=== PATIENT | female | born 1980 | race Caucasian/White ===

== ENCOUNTER → 2019-01-04 10:12 | Outpatient (CLI) | payer OTHER, SELFPAY ==
[2019-01-04 13:00] LABS: Free T3, Triiodothyronine Free 3.88 pg/mL (2.77-5.27); Free T4, Direct Thyroxine 0.84 ng/dL (0.78-2.19)
[2019-01-04 13:14] LABS: Thyroid Stimulating Hormone 1.38 uIU/mL (0.47-4.68)
[2019-01-06 15:16] LABS: Thyroid Peroxidase Antibodies 71 IU/mL (< 9)
== END ==
PROVIDERS: PCP Family Medicine; Visit Provider Family Medicine
DX: E05.00 Thyrotoxicosis with diffuse goiter without thyrotoxic crisis or storm (principal)
CPT/HCPCS: 36415; 84439; 84443; 84481; 86376

== ENCOUNTER → 2021-05-21 07:54 | Outpatient (CLI) | payer OTHER, SELFPAY ==
[2021-05-21 08:28] LABS: Add Manual Diff / Slide Review NO; Basophils Absolute Auto 0 /uL (0-100); Basophils Percent Auto 0.8 % (0-2); Eosinophils Absolute Auto 200 /uL (0-450); Eosinophils Percent Auto 3.8 % (2-4); Hematocrit 35.8 % (36-46); Hemoglobin 12.2 g/dL (12.0-16.0); Lymphocytes Absolute Auto 1400 /uL (1100-4500); Lymphocytes Percent Auto 30.1 % (25-40); Mean Corpuscular HGB Conc 34.1 % (30-36); Mean Corpuscular Hemoglobin 31.1 PG (26-34); Mean Corpuscular Volume 91.2 fL (80-100); Monocytes Absolute Auto 400 /uL (0-900); Monocytes Percent Auto 8.1 % (3-14); Neutrophils Absolute Auto 2700 /uL (1500-7000); Neutrophils Percent Auto 57.2 % (50-75); Platelet Count 244 X10^3/uL (150-400); Red Blood Cell Count 3.93 X10^6/uL (4.0-5.2); White Blood Cell Count 4.8 X10^3/uL (4.5-11.0)
[2021-05-21 09:06] LABS: Alanine Aminotransferase 11 IU/L (<35); Albumin 4.2 g/dL (3.5-5.0); Albumin Globulin Ratio 1.6 (1.0-2.8); Alkaline Phosphatase 65 U/L (38-126); Aspartate Aminotransferase 21 IU/L (14-36); BUN Creatinine Ratio 21.5 (6-22); Bilirubin Total 0.2 mg/dL (0.2-1.3); Blood Urea Nitrogen 17 mg/dL (7-17); Calcium 9.1 mg/dL (8.4-10.2); Carbon Dioxide 30 mmol/L (22-32); Chloride 105 mmol/L (98-107); Cholesterol 162 mg/dL (140-199); Estimated Glomerular Filt Rate > 60.0 mL/min (>60); Globulin 2.7 g/dL (1.7-4.1); Glucose 94 mg/dL (70-100); HDL Cholesterol 75 mg/dL (40-60); HEMOLYSIS < 15 (0-50); LDL Cholesterol Calculated 77 mg/dL (<100); Potassium 4.3 mmol/L (3.4-5.1); Sodium 139 mmol/L (137-145); Total Protein 6.9 g/dL (6.3-8.2); Triglycerides 51 mg/dL (35-150)
[2021-05-21 09:27] LABS: TSH w/ Reflex to FT4 1.04 uIU/mL (0.47-4.68)
[2021-05-21 16:36] LABS: Free T4, Direct Thyroxine 0.86 ng/dL (0.78-2.19)
[2021-05-21 22:37] LABS: Triiodothyronine T3 Total 116 ng/dL (71-180)
== END ==
PROVIDERS: PCP Physician Assistant; Referring Provider Physician Assistant; Visit Provider Physician Assistant
DX: N92.1 Excessive and frequent menstruation with irregular cycle (principal); E05.90 Thyrotoxicosis, unspecified without thyrotoxic crisis or storm; Z13.220 Encounter for screening for lipoid disorders
CPT/HCPCS: 36415; 80053; 80061; 84439; 84443; 84480; 85025

== ENCOUNTER → 2021-06-06 07:20 | Outpatient (CLI) | payer OTHER, SELFPAY ==
--- NOTE | 2021-06-06 | DI.US.S_ITS ---
PROCEDURE: US PELVIC COMPLETE INDICATIONS: DUB TECHNIQUE: Real-time scanning was performed of the pelvic organs, with image documentation. Additional endovaginal scanning was necessary due to incomplete visualization of the adnexal and endometrial structures by transabdominal scanning. COMPARISON: None. FINDINGS: Uterus: Uterus is anteverted, measuring 10.2 x 5.3 x 6.9 cm. The endometrium measures 18.9 mm in combined thickness and is heterogeneous. Ovaries: The right ovary measures 2.8 x 1.2 x 1.5 cm and demonstrates normal flow. The left ovary is not seen. Other: No pathologic free abdominal or pelvic fluid. IMPRESSION: Thickening of the endometrium. Correlate with patient's menstrual cycle. Dictated by: Jorge Mejia M.D. on 06/06/2021 at 8:45 Approved by: Jorge Mjeia M.D. on 06/07/2021 at 13:00
== END ==
PROVIDERS: PCP Physician Assistant; Referring Provider Physician Assistant; Visit Provider Physician Assistant
DX: N92.1 Excessive and frequent menstruation with irregular cycle (principal); R93.89 Abnormal findings on diagnostic imaging of other specified body structures
CPT/HCPCS: 76830; 76856

== ENCOUNTER → 2021-06-27 15:34 | Outpatient (CLI) | payer OTHER, SELFPAY ==
[2021-06-27 16:43] LABS: Prolactin 26.9 ng/mL (3.0-18.6)
[2021-06-27 16:53] LABS: Follicle Stimulating Hormone < 0.66 mIU/mL
[2021-06-27 17:07] LABS: HCG Quantitative /Beta subunit 15862 mIU/mL; TSH w/ Reflex to FT4 0.96 uIU/mL (0.47-4.68)
== END ==
PROVIDERS: PCP Physician Assistant; Referring Provider Physician Assistant; Visit Provider Physician Assistant
DX: N91.2 Amenorrhea, unspecified (principal)
CPT/HCPCS: 36415; 83001; 84146; 84443; 84702

== ENCOUNTER → 2021-07-02 15:27 | Outpatient (CLI) | payer OTHER, SELFPAY ==
[2021-07-02 19:00] LABS: HCG Quantitative /Beta subunit 45317 mIU/mL
== END ==
PROVIDERS: PCP Physician Assistant; Referring Provider Physician Assistant; Visit Provider Physician Assistant
DX: N91.2 Amenorrhea, unspecified (principal)
CPT/HCPCS: 36415; 84702

== ENCOUNTER → 2021-07-16 07:41 | Outpatient (CLI) | payer OTHER, SELFPAY ==
--- NOTE | 2021-07-16 07:41 | DI.US.S_ITS ---
PROCEDURE: US OB <= 14 WEEKS FETUS INDICATIONS: DATES OUTSIDE/PRIOR DATING DATA: Last menstrual period (LMP): Unknown LMP-based estimated date of delivery (MAYRA): Unknown First dating scan (date and location): 07/16/2021 at [facility]. Estimated date of delivery (MAYRA) from first dating scan: 02/21/2022 The calculations are made using the ultrasound MAYRA of 02/21/2022. TECHNIQUE: Real-time scanning was performed of the fetus and maternal pelvic organs, with image documentation. Endovaginal scanning was also performed to better visualize the fetus and maternal ovaries. COMPARISON: [facility], US, US PELVIC COMPLETE, 06/06/2021, 7:30. FINDINGS: Embryo: Intrauterine is seen with gestational sac, yolk sac, and pole. The crown-rump length is 2.0 cm, and double with an estimated gestational age of 8 weeks 4 days. Hypoechoic focus adjacent to the gestational sac measuring 1.8 x 1.0 x 1.4 cm is consistent with a perigestational sac hemorrhage. Heart rate: 165 beats per minute Maternal organs: A left ovarian corpus luteum cyst is present. The right ovary is not well visualized. IMPRESSION: 1. Single live intrauterine with estimated gestational age of 8 weeks 4 days. 2. Small perigestational sac hemorrhage measuring up to 1.8 cm. We strive to produce accurate, complete, and clear reports of imaging services. To assist us in improving patient care, this report was composed using standard report templates and voice recognition software. Therefore, it may contain abnormal punctuation, insertions and/or omissions. Occasional wrong-word or sound-alike substitutions may occur. Though we review the report and make efforts to correct it, we do recommend that the report be read carefully in proper context to recognize any text inaccuracies. Dictated by: Mike Curry M.D. on 07/16/2021 at 8:35 Approved by: Mike Curry M.D. on 07/16/2021 at 8:40
== END ==
PROVIDERS: PCP Physician Assistant; Referring Provider Obstetrics & Gynecology; Visit Provider Obstetrics & Gynecology
DX: O34.81 Maternal care for other abnormalities of pelvic organs, first trimester (principal); N83.12 Corpus luteum cyst of left ovary; O46.8X1 Other antepartum hemorrhage, first trimester; Z3A.08 8 weeks gestation of pregnancy
CPT/HCPCS: 76801; 76817

== ENCOUNTER → 2021-07-27 17:15 | Outpatient (CLI) | payer OTHER, SELFPAY ==
[2021-07-27 20:23] LABS: Urine N gonorrhoeae NOT DETECTED
[2021-07-27 20:41] LABS: Urine Chlamydia NOT DETECTED
== END ==
PROVIDERS: PCP Physician Assistant; Visit Provider Obstetrics & Gynecology
DX: Z34.81 Encounter for supervision of other normal pregnancy, first trimester (principal); Z3A.10 10 weeks gestation of pregnancy
CPT/HCPCS: 87491; 87591

== ENCOUNTER 2022-08-21 07:48 | Emergency (ER) | payer OTHER, SELFPAY ==
[2022-08-21 07:50] VITALS: BP 112/71; PULSE 78; RESP 18; TEMP 36.6; O2SAT 98; BMI 22.9
[2022-08-21 07:53] VITALS: BP 112/71; PULSE 85; O2SAT 99
[2022-08-21 08:00] VITALS: BP 116/70; PULSE 80; O2SAT 98
--- NOTE | 2022-08-21 08:03 | ED_ITS ---
HPI - Extremity Injury (Lower) General Chief Complaint: Extremity Injury, Lower Stated Complaint: left leg pain on back of it, knee swollen Time Seen by Provider: 08/21/22 07:52 Source: patient and family Mode of arrival: Ambulatory History of Present Illness HPI Narrative: Patient is a healthy 42-year-old presents with left leg swelling and pain for the last 1-2 days. She and her family traveled to [place] on August 11 then traveled back home on the . She said on flight home she got really lightheaded and hot and briefly passed out. Since then she is not had any shortness breath chest pain fever chills nausea vomiting or other symptoms. She does have pain in her left calf and feels like her knee is swollen. She denies any injury. It hurts to walk. She is not on control. No prior history of blood clots. Related Data Home Medications Medication Instructions Recorded Confirmed cholecalciferol (vitamin D3) 25 25 mcg PO DAILY 07/27/21 08/21/22 mcg (1,000 unit) capsule Previous Rx's Medication Instructions Recorded fluoxetine 20 mg capsule 20 mg PO DAILY #90 caps 06/13/22 apixaban 5 mg (74 tabs) tablets in See Rx Instructions PO .COMPLEX 08/21/22 a dose pack (Eliquis DVT-PE Treat #74 ea 30D Start) apixaban 5 mg tablet (Eliquis) 5 mg PO BID #60 tabs 08/21/22 Allergies Allergy/AdvReac Type Severity Reaction Status Date / Time acetaminophen [From Vicodin] AdvReac Severe Itching Verified 08/21/22 07:39 and Vomiting codeine AdvReac Severe Itching Verified 08/21/22 07:39 and Vomiting hydrocodone [From Vicodin] AdvReac Severe Itching Verified 08/21/22 07:39 and Vomiting Review of Systems Review of Systems ROS Unobtainable: All systems reviewed & are unremarkable except as noted in HPI and below Patient History Medical History Endometriosis (~2005) Graves disease Spontaneous vaginal delivery Surgical History H/O nasal septoplasty History of uterine suspension procedure (~2006) Family History Mother Deafness congenital Son Dermatomyositis Father Bladder cancer Grandmother No problems noted. Grandfather Rheumatoid arthritis Grandmother No problems noted. Grandfather Alzheimer disease Social History marital status: number of children: 3 household members: family lives independently: Yes caregiver/support person: No housing: house pets and animals: Yes (1 dog, 2 barn cats, goats & chicken. ) education level: college (BA Civil Engineering) occupational status: employed (Working from home) current occupational exposures/hazards: No special christy needs: No seatbelt use: always do you feel safe at home: Yes Smoking Status: Never smoker second hand exposure: No alcohol intake: former (Pre-: very rare, a sip at as.) substance use type: does not use during the past year weight has: increased > 10 lbs well-balanced diet: daily or most days daily servings fruits/ve-4 caffeine: No Type(s) of exercise: walking (5 miles on treadmill daily) and swimming (2 days/week) frequency: daily duration: 45-60 minutes/day Smoking Status: Never smoker Exam Initial Vital Signs Initial Vital Signs: Vital Signs Temperature 97.8 F 08/21/22 07:50 Pulse Rate 78 08/21/22 07:50 Respiratory Rate 18 08/21/22 07:50 Blood Pressure 112/71 08/21/22 07:50 Pulse Oximetry 98 08/21/22 07:50 Oxygen Delivery Method 08/21/22 07:50 GENERAL: Alert pleasant well-appearing 42-year-old female HEENT: Head atraumatic,EOMI, pupils reactive, face symmetric, moist mucous membranes CARDIOVASCULAR: Regular rate and rhythm without murmurs, rubs or gallops. RESPIRATORY: Breath sounds equal bilaterally, no wheezes rales or rhonchi. ABDOMEN: Soft, nontender. Normoactive bowel sounds all 4 quadrants. No guarding or rebound. EXTREMITIES: Normal range of motion, no clubbing or edema. Neurovascularly intact Left leg swollen no erythema posterior knee no swelling or James's cyst. Distal pedal pulse intact. NEUROLOGICAL: Alert and oriented x4. SKIN: Warm, dry, no laceration, no petechiae, no rashes or lesions. Course Orders Ordered: ED Orders 08/21/22 08:03 US periph venous low extrem lt Stat 08/21/22 08:39 XR knee LT 3V Stat 08/21/22 08:58 CBC Auto Diff [Complete Blood Count AUTO DIFF] Stat CMP [Comprehensive Metabolic Panel] Stat D Dimer Stat 08/21/22 09:37 Consult to [facility] [place] [facility] [employer] Stat Discontinued Medications Apixaban (Apixaban 5 Mg Tablet) 10 mg PO NOW ONE Stop: 08/21/22 09:38 Last Admin: 08/21/22 09:57 Dose: 10 mg Documented By: FLORES Vital Signs Vital signs: Vital Signs - 8 hr 08/21/22 07:50 08/21/22 07:53 08/21/22 07:53 Temperature 97.8 F Pulse Rate 78 85 Respiratory Rate 18 Blood Pressure 112/71 112/71 Pulse Oximetry 98 99 Oxygen Delivery Method Room Air 08/21/22 08:00 08/21/22 08:00 08/21/22 08:30 Temperature Pulse Rate 80 Respiratory Rate Blood Pressure 116/70 101/62 Pulse Oximetry 98 Oxygen Delivery Method 08/21/22 08:30 08/21/22 10:04 Temperature Pulse Rate 63 73 Respiratory Rate 18 Blood Pressure 107/63 Pulse Oximetry 98 98 Oxygen Delivery Method Room Air MDM - Extremity Injury (Lower) Lab Data Result diagrams: 08/21/22 08:58 08/21/22 08:58 Labs: Lab Results 08/21/22 08/21/22 08/21/22 Range/Units 08:58 08:58 08:58 WBC 4.6 (4.5-11.0) X10^3/uL RBC 3.94 L (4.0-5.2) X10^6/uL Hgb 12.1 (12.0-16.0) g/dL Hct 35.5 L (36-46) % MCV 90.1 (80-100) fL MCH 30.8 (26-34) PG MCHC 34.1 (30-36) % RDW 12.5 (11.6-14.8) % Plt Count 253 (150-400) X10^3/uL Neut % (Auto) 56.5 (50-75) % Lymph % (Auto) 25.5 (25-40) % [place] % (Auto) 8.7 (3-14) % Eos % (Auto) 8.7 H (2-4) % Baso % (Auto) 0.6 (0-2) % Neut # (Auto) 2600 (0275-9754) /uL Lymph # (Auto) 1200 (0083-3892) /uL [place] # (Auto) 400 (0-900) /uL Eos # (Auto) 400 (0-450) /uL Baso # (Auto) 0 (0-100) /uL D-Dimer 1061 H (<500) ng/ml Sodium 139 (137-145) mmol/L Potassium 4.2 (3.4-5.1) mmol/L Chloride 105 (98-107) mmol/L Carbon Dioxide 26 (22-32) mmol/L BUN 19 H (7-17) mg/dL Creatinine 0.68 (0.52-1.04) mg/dL Estimated GFR > 60 (>60) mL/min BUN/Creatinine Ratio 27.9 H (6-22) Glucose 84 (70-100) mg/dL Calcium 8.5 (8.4-10.2) mg/dL Total Bilirubin 0.4 (0.2-1.3) mg/dL AST 29 (14-36) IU/L ALT 21 (<35) IU/L Alkaline Phosphatase 66 (38-126) U/L Total Protein 7.2 (6.3-8.2) g/dL Albumin 4.0 (3.5-5.0) g/dL Globulin 3.2 (1.7-4.1) g/dL Albumin/Globulin Ratio 1.3 (1.0-2.8) Imaging Data US - DVT: Radiologist's Impression: Ultrasound Report Signed Patient: Rosario Call MR#: [id number] : 1980 Acct:[id number] Age/Sex: 42 / F Date of Service: 08/21/22 Loc: ED Accession Number: [id number] ?? Procedure: US periph venous low extrem lt Ordering Provider: Shavonne Treviño D.O. PROCEDURE:? US PERIPH VENOUS LOW EXTREM LT ? INDICATIONS:? EDEMA, PAIN ? TECHNIQUE:? Real-time imaging, as well as color and pulse Doppler interrogation, were performed of the lower extremity deep veins from the inguinal ligament to the popliteal fossa.? ? COMPARISON:? None. ? FINDINGS:? The common femoral, femoral and popliteal veins are normally compressible, and free of intraluminal thrombus.? Color and pulse Doppler demonstrate normal phasic intraluminal flow.? There is normal augmentation response to distal compression maneuver. ? ? IMPRESSION:? No deep vein thrombosis of the left lower extremity. ? ? Dictated by: Mechelle Velarde M.D. on 08/21/2022 at 8:44 ? ? Extremity x-ray #1: Radiologist's Impression: XRay Report Signed Patient: Rosario Call MR#: [id number] : 1980 Acct:[id number] Age/Sex: 42 / F Date of Service: 08/21/22 Loc: ED Accession Number: [id number] ?? Procedure: XR knee LT 3V Ordering Provider: Shavonne Treviño D.O. PROCEDURE:? XR KNEE LT 3V ? INDICATIONS:? swelling ? TECHNIQUE:? 3 views of the knee were acquired.? ? COMPARISON:? None. ? FINDINGS:? ? Bones:? No fractures or dislocations.? No suspicious bony lesions.? ? Soft tissues:? There is a moderate knee joint effusion. ? ? IMPRESSION:? Moderate knee joint effusion.? No bony abnormalities visualized. ? ? Dictated by: Mechelle Velarde M.D. on 08/21/2022 at 9:31 ? ? Approved by: Mechelle Velarde M.D. on 08/21/2022 at 9:35 ? MDM Narrative Medical decision making narrative: Patient is a healthy 42-year-old female who had recent travel with now left leg swelling and pain. Ultrasound is negative however I do have high suspicion that possible DVT. Blood work is positive for with a D-dimer greater than 1000. At this time will go ahead and treat for suspected DVT. I discussed with patient risks and benefits of being on anticoagulation. She has no contraindications for anticoagulation. Started on Eliquis here in the emergency department. She does not yet have primary care provider can get an appointment until January. I have consulted social work to help with this problem. I have also recommended that she return to the ER D for repeat ultrasound next week if not able to get in with a PCP. At this time she is not tachycardic or hypotensive or hypoxic. No sign of embolism at this time. We did discuss this as risk and benefit. Discharge Plan Departure Patient Disposition: Home Clinical Impression: DVT (deep venous thrombosis) Instructions: Deep Vein Thrombosis Activity Restrictions/Additional Instructions: *You have been diagnosed with at this time high suspicion for DVT *What to do: At this time I recommend that we treat for a DVT. However I do re commend repeating ultrasound in about 7-10 days. If not able to get into a PCP may return to the emergency department. I have consulted social work to help get you into a primary care provider sooner causing will need refills on your Eliquis Please avoid any high-risk activity you are at risk for bleeding. No that you will bleed longer if you should cut herself for have a bloody nose. Please a pply pressure and ice for least 60 minutes if that does not work then he may come to the emergency department for treatment. *Continue to take medications as directed Eliquis 10 mg twice a day for 7 days then 5 mg twice a day for at least 3 months --> [facility] *Follow up with your primary care provider in 2-3 days or call [phone] *Return to ER if you should have increasing pain swelling chest pain shortness of breath bleeding that does not stop falling hitting her head or any new, worsening or concerning symptoms Prescriptions: New Eliquis 5 mg tablet 5 mg PO BID Qty: 60 0RF Rx Instructions: 10 mg twice a day for 7 days then 5 mg twice daily Eliquis DVT-PE Treat 30D Start 5 mg (74 tabs) tablets,dose pack See Rx Instructions .ROUTE .COMPLEX Qty: 74 0RF Rx Instructions: orally per package directions No Action fluoxetine 20 mg capsule 20 mg PO DAILY Qty: 90 0RF cholecalciferol (vitamin D3) 25 mcg (1,000 unit) capsule 25 mcg PO DAILY Referrals: Juan Parmar ARNP [Primary Care Provider] - Visit Report Forms: Patient Portal/API
--- NOTE | 2022-08-21 08:03 | DI.US.S_ITS ---
PROCEDURE: US PERIPH VENOUS LOW EXTREM LT INDICATIONS: EDEMA, PAIN TECHNIQUE: Real-time imaging, as well as color and pulse Doppler interrogation, were performed of the lower extremity deep veins from the inguinal ligament to the popliteal fossa. COMPARISON: None. FINDINGS: The common femoral, femoral and popliteal veins are normally compressible, and free of intraluminal thrombus. Color and pulse Doppler demonstrate normal phasic intraluminal flow. There is normal augmentation response to distal compression maneuver. IMPRESSION: No deep vein thrombosis of the left lower extremity. Dictated by: Mechelle Velarde M.D. on 08/21/2022 at 8:44 Approved by: Mechelle Velarde M.D. on 08/21/2022 at 8:46
[2022-08-21 08:30] VITALS: BP 101/62; PULSE 63; RESP 18; O2SAT 98
--- NOTE | 2022-08-21 08:39 | DI.RAD.S_ITS ---
PROCEDURE: XR KNEE LT 3V INDICATIONS: swelling TECHNIQUE: 3 views of the knee were acquired. COMPARISON: None. FINDINGS: Bones: No fractures or dislocations. No suspicious bony lesions. Soft tissues: There is a moderate knee joint effusion. IMPRESSION: Moderate knee joint effusion. No bony abnormalities visualized. Dictated by: Mechelle Velarde M.D. on 08/21/2022 at 9:31 Approved by: Mechelle Velarde M.D. on 08/21/2022 at 9:35
[2022-08-21 09:12] LABS: Add Manual Diff / Slide Review NO; Basophils Absolute Auto 0 /uL (0-100); Basophils Percent Auto 0.6 % (0-2); Eosinophils Absolute Auto 400 /uL (0-450); Eosinophils Percent Auto 8.7 % (2-4); Hematocrit 35.5 % (36-46); Hemoglobin 12.1 g/dL (12.0-16.0); Lymphocytes Absolute Auto 1200 /uL (1100-4500); Lymphocytes Percent Auto 25.5 % (25-40); Mean Corpuscular HGB Conc 34.1 % (30-36); Mean Corpuscular Hemoglobin 30.8 PG (26-34); Mean Corpuscular Volume 90.1 fL (80-100); Monocytes Absolute Auto 400 /uL (0-900); Monocytes Percent Auto 8.7 % (3-14); Neutrophils Absolute Auto 2600 /uL (1500-7000); Neutrophils Percent Auto 56.5 % (50-75); Platelet Count 253 X10^3/uL (150-400); Red Blood Cell Count 3.94 X10^6/uL (4.0-5.2); Red Cell Distribution Width 12.5 % (11.6-14.8); White Blood Cell Count 4.6 X10^3/uL (4.5-11.0)
[2022-08-21 09:21] LABS: D Dimer 1061 ng/ml (<500)
[2022-08-21 09:27] LABS: Alanine Aminotransferase 21 IU/L (<35); Albumin Globulin Ratio 1.3 (1.0-2.8); Alkaline Phosphatase 66 U/L (38-126); Aspartate Aminotransferase 29 IU/L (14-36); BUN Creatinine Ratio 27.9 (6-22); Bilirubin Total 0.4 mg/dL (0.2-1.3); Blood Urea Nitrogen 19 mg/dL (7-17); Calcium 8.5 mg/dL (8.4-10.2); Carbon Dioxide 26 mmol/L (22-32); Chloride 105 mmol/L (98-107); Estimated Glomerular Filt Rate > 60 mL/min (>60); Globulin 3.2 g/dL (1.7-4.1); Glucose 84 mg/dL (70-100); HEMOLYSIS < 15 (0-50); Potassium 4.2 mmol/L (3.4-5.1); Sodium 139 mmol/L (137-145); Total Protein 7.2 g/dL (6.3-8.2)
[2022-08-21] MEDS: APIXABAN 5 MG TABLET 10 MG PO (09:57)
[2022-08-21 10:04] VITALS: BP 107/63; PULSE 73; O2SAT 98
== END 2022-08-21 10:05 | disposition home or self-care (01) ==
PROVIDERS: Emergency Provider Emergency Medicine; PCP Registered Nurse Diabetes Educator
DX: I82.402 Acute embolism and thrombosis of unspecified deep veins of left lower extremity (principal); Z79.01 Long term (current) use of anticoagulants; Z79.899 Other long term (current) drug therapy
CPT/HCPCS: 73562; 80053; 85025; 85379; 93971; 99283; 99284

== ENCOUNTER → 2022-09-24 10:14 | Outpatient (CLI) | payer OTHER, SELFPAY ==
--- NOTE | 2022-09-24 10:16 | DI.US.S_ITS ---
PROCEDURE: US PERIP VENOUS LOW EXTREM LT INDICATIONS: LLE PAIN TECHNIQUE: Real-time imaging, as well as color and pulse Doppler interrogation, were performed of the lower extremity deep veins from the inguinal ligament to the popliteal fossa. COMPARISON: [facility], CR, XR KNEE LT 3V, 08/21/2022, 8:46. [facility], US, US PERIPH VENOUS LOW EXTREM LT, 08/21/2022, 8:27. FINDINGS: The common femoral, femoral and popliteal veins are normally compressible, and free of intraluminal thrombus. Color and pulse Doppler demonstrate normal phasic intraluminal flow. There is normal augmentation response to distal compression maneuver. IMPRESSION: Negative for deep venous thrombosis. Dictated by: Zhen Prince M.D. on 09/24/2022 at 12:00 Approved by: Zhen Prince M.D. on 09/24/2022 at 12:00
== END ==
PROVIDERS: PCP Family Medicine; Referring Provider Internal Medicine Medical Oncology; Visit Provider Internal Medicine Medical Oncology
DX: I82.409 Acute embolism and thrombosis of unspecified deep veins of unspecified lower extremity (principal)
CPT/HCPCS: 93971

== ENCOUNTER 2022-10-02 10:51 | Emergency (ER) | payer OTHER, SELFPAY ==
[2022-10-02] VITALS (19 sets, daily range): BP systolic 80–110; BP diastolic 40–66; PULSE 60–92; RESP 13–25; TEMP 36.6; O2SAT 97–100; BMI 31.1
[2022-10-02] MEDS: SODIUM CHLORIDE 0.9% 1,000 ML 1000 ML IV (11:03)
--- NOTE | 2022-10-02 11:09 | DI.CT.S_ITS ---
PROCEDURE: CT ANGIO CHEST PE PROTOCOL INDICATIONS: syncope, known DVT TECHNIQUE: After the administration of intravenous contrast, 2 mm thick sections acquired from the pulmonary apices to the posterior costophrenic angles. 3-dimensional maximum intensity projection (MIP) coronal and sagittal reformats were then acquired through the thorax. For radiation dose reduction, the following was used: automated exposure control, adjustment of mA and/or kV according to patient size. COMPARISON: None. FINDINGS: Image quality: Excellent. Pulmonary arteries: Pulmonary arteries are normal in size, and demonstrate no intraluminal filling defects to suggest central pulmonary embolism. Lungs and pleura: Lungs are clear. There is a small amount of loculated fluid in the peripheral aspect of the major fissure of the left lung. It has a Hounsfield measurement of 15. It causes a pseudotumor appearance. It measures approximately 1.8 x 1.7 x 1.3 cm. Central and peripheral airways are patent. Mediastinum: Heart size is normal, without pericardial effusion. No mediastinal or hilar adenopathy. Thoracic aorta is normal in caliber and enhancement. Esophagus is normal in caliber, without hiatal hernia. Bones and chest wall: There is an indeterminate area of sclerosis present in the left posterior vertebral body of T9. There is also small lobulated tissue to the right anteriorly at the level of T6 and T5 and T4. This is of uncertain etiology. Ribs and thoracic spine appear intact throughout. Thyroid gland is unremarkable. No axillary or supraclavicular adenopathy. Abdomen: Visualized upper abdominal solid organs appear normal in the early arterial phase of enhancement. IMPRESSION: 1. No evidence of acute pulmonary emboli. 2. A small amount of loculated fluid in the major fissure of the left lung results in a pseudotumor appearance. 3. There is an indeterminate sclerotic lesion involving the posterior left T9 vertebral body. 4. There is also small lobulated soft tissue to the right anterior to the T4 through T6 vertebral bodies. Comment: Consider thoracic spine MRI with without contrast for further evaluation. Dictated by: Darell Madrigal M.D. on 10/02/2022 at 12:33 Approved by: Darell Madrigal M.D. on 10/02/2022 at 12:42
[2022-10-02 11:13] LABS: Add Manual Diff / Slide Review NO; Basophils Absolute Auto 100 /uL (0-100); Basophils Percent Auto 0.6 % (0-2); Eosinophils Absolute Auto 500 /uL (0-450); Eosinophils Percent Auto 4.5 % (2-4); Hematocrit 37.2 % (36-46); Hemoglobin 12.6 g/dL (12.0-16.0); INR 1.4 (0.9-1.3); Lymphocytes Absolute Auto 3300 /uL (1100-4500); Lymphocytes Percent Auto 29.9 % (25-40); Mean Corpuscular HGB Conc 33.8 % (30-36); Mean Corpuscular Hemoglobin 30.2 PG (26-34); Mean Corpuscular Volume 89.3 fL (80-100); Monocytes Absolute Auto 800 /uL (0-900); Monocytes Percent Auto 6.8 % (3-14); Neutrophils Absolute Auto 6500 /uL (1500-7000); Neutrophils Percent Auto 58.2 % (50-75); Platelet Count 386 X10^3/uL (150-400); Red Blood Cell Count 4.17 X10^6/uL (4.0-5.2); Red Cell Distribution Width 12.8 % (11.6-14.8); White Blood Cell Count 11.2 X10^3/uL (4.5-11.0)
[2022-10-02 11:16] LABS: PTT Partial Thromboplastin Tim 31 SECONDS (26-36)
[2022-10-02 11:17] LABS: Alanine Aminotransferase 13 IU/L (<35); Albumin 4.3 g/dL (3.5-5.0); Albumin Globulin Ratio 1.3 (1.0-2.8); Alkaline Phosphatase 70 U/L (38-126); Aspartate Aminotransferase 21 IU/L (14-36); BUN Creatinine Ratio 18.9 (6-22); Bilirubin Total 0.2 mg/dL (0.2-1.3); Blood Urea Nitrogen 14 mg/dL (7-17); Carbon Dioxide 26 mmol/L (22-32); Chloride 102 mmol/L (98-107); Creatine Kinase 60 U/L (30-135); Estimated Glomerular Filt Rate > 60 mL/min (>60); Globulin 3.2 g/dL (1.7-4.1); Glucose 118 mg/dL (70-100); HEMOLYSIS < 15 (0-50); Lipase 191 U/L (23-300); Potassium 3.3 mmol/L (3.4-5.1); Sodium 138 mmol/L (137-145); Total Protein 7.5 g/dL (6.3-8.2)
[2022-10-02 11:29] LABS: Troponin I < 0.012 ng/mL (0.01-0.034)
--- NOTE | 2022-10-02 13:07 | DI.MRI.S_ITS ---
PROCEDURE: MR THORACIC SPINE WO/W CON INDICATIONS: eval lesions on CT imaging TECHNIQUE: Noncontrast sagittal T1 spin echo and T2 fast spin echo, sagittal STIR, axial T1 and T2 fast spin echo through the thoracic spine. After the administration of contrast, axial and sagittal T1 spin echo with fat saturation through the thoracic spine. COMPARISON: [facility], CT, CT ANGIO CHEST PE PROTOCOL, 10/02/2022, 11:30. FINDINGS: Image quality: Excellent. Alignment and curvature: There is normal bony alignment. Marrow: Marrow is of normal overall signal. No acute vertebral body compression fractures. The area of sclerosis in the T9 vertebral body seen on the CT angiogram of the chest is unremarkable on MRI, and is consistent with a benign incidental lesion. Spinal cord: Visualized spinal cord is of normal signal and size, without abnormal enhancement. Paraspinous soft tissues: No paravertebral masses or abnormal enhancement. The small lobulated soft tissue seen immediately to the right of the anterior lateral aspect of the T4 through T6 vertebral bodies has the appearance consistent with a benign cystic structure. Miscellaneous: Central canal and foramina appear widely patent at all scanned levels. At T7-T8, there is a small left paracentral disc protrusion without canal stenosis. IMPRESSION: 1. There are no findings suspicious for malignancy in the thoracic spine. The sclerotic area seen on T9 in the CT is consistent with a benign incidental lesion. 2. The lobulated soft tissue subjacent to the T4 through T6 vertebral bodies is consistent with a benign cystic structure. 3. Small left paracentral disc protrusion at T7-T8, without canal stenosis. Dictated by: Darell Madrigal M.D. on 10/02/2022 at 15:21 Approved by: Darell Madrigal M.D. on 10/02/2022 at 15:30
[2022-10-02] MEDS: LORazepam 0.5 MG TABLET 1 MG PO (13:37)
[2022-10-02 14:01] LABS: Cancer Antigen 125 9.7 U/mL (0-35)
--- NOTE | 2022-10-02 21:24 | ED.GENADULT ---
HPI - General Adult General Chief complaint: Syncope Stated complaint: passed out Time Seen by Provider: 10/02/22 11:09 Source: patient Mode of arrival: Wheelchair History of Present Illness HPI narrative: 42-year-old female presenting following syncopal episode that occurred while giving blood earlier in the day. Patient reportedly had blood draw that was performed at this facility, patient developed lightheadedness and then had a syncopal episode during her blood draw, patient noted symptoms while she was sitting in chair, patient did not fall. Patient noted to be hypotensive immediately following syncopal episode, been alert and interactive since awakening from her syncopal episode. No prior episodes of syncope noted. Patient has a history of recently diagnosed DVT, however, patient did not have obvious clot identified on DVT ultrasound, patient did have elevated D-dimer and was started on apixaban for anticoagulation. Today's labs were evaluating the patient for hypercoagulability. Patient denies chest pain or shortness of breath, no abdominal pain. No headache. Related Data Home Medications Medication Instructions Recorded Confirmed cholecalciferol (vitamin D3) 25 25 mcg PO DAILY 07/27/21 10/02/22 mcg (1,000 unit) capsule fluoxetine 20 mg capsule 20 mg PO DAILY 10/02/22 10/02/22 Previous Rx's Medication Instructions Recorded apixaban 5 mg tablet (Eliquis) 5 mg PO BID #180 tabs 08/28/22 Allergies Allergy/AdvReac Type Severity Reaction Status Date / Time codeine AdvReac Severe Itching Verified 10/02/22 11:00 and Vomiting hydrocodone [From Vicodin] AdvReac Severe Itching Verified 10/02/22 11:00 and Vomiting Patient History Medical History Endometriosis (~2005) Graves disease Spontaneous vaginal delivery Surgical History H/O nasal septoplasty History of uterine suspension procedure (~2006) Family History Mother Deafness congenital Son Dermatomyositis Father Bladder cancer Grandmother No problems noted. Grandfather Rheumatoid arthritis Grandmother No problems noted. Grandfather Alzheimer disease Social History marital status: number of children: 3 household members: family lives independently: Yes caregiver/support person: No housing: house pets and animals: Yes (1 dog, 2 barn cats, goats & chicken. ) education level: college (BA Civil Engineering) occupational status: employed (Working from home) current occupational exposures/hazards: No special christy needs: No seatbelt use: always do you feel safe at home: Yes Smoking Status: Never smoker second hand exposure: No alcohol intake: former (Pre-: very rare, a sip at Xmas.) substance use type: does not use during the past year weight has: increased > 10 lbs well-balanced diet: daily or most days daily servings fruits/ve-4 caffeine: No Type(s) of exercise: walking (5 miles on treadmill daily) and swimming (2 days/week) frequency: daily duration: 45-60 minutes/day Smoking Status: Never smoker alcohol intake frequency: holidays/special occasions only Substance Use Type: does not use Exam Narrative Exam Narrative: Vitals reviewed. Nursing note reviewed Constitutional: interactive HENT: Moist mucous membranes EYES: No scleral icterus NECK: no masses CV: Well perfused peripherally, no cyanosis present PULM: Unlabored respirations, symmetric chest rise ABD: Non-distended MS: No gross deformities, no asymmetric edema noted SKIN: Warm and dry. PSYCH: Appropriate affect NEURO: Follows simple commands, moves extremities, interactive with exam Initial Vital Signs Initial Vital Signs: Vital Signs Temperature 97.9 F 10/02/22 10:52 Pulse Rate 61 10/02/22 10:52 Respiratory Rate 18 10/02/22 10:52 Blood Pressure 80/49 L 10/02/22 10:52 Pulse Oximetry 99 10/02/22 10:52 Oxygen Delivery Method 10/02/22 10:52 Course Orders Ordered: ED Orders 10/02/22 13:07 MR thoracic spine wo/w con Stat Discontinued Medications Sodium Chloride (Normal Saline 0.9%) 1,000 mls @ 1,000 mls/hr IV BOLUS ONE Stop: 10/02/22 12:00 Last Infusion: 10/02/22 12:16 Dose: 0 mls/hr Documented By: Admin: 10/02/22 11:03 Dose: 1,000 mls/hr Documented By: DAVID Lorazepam (Lorazepam 0.5 Mg Tablet) 1 mg PO NOW ONE Stop: 10/02/22 13:27 Last Admin: 10/02/22 13:37 Dose: 1 mg Documented By: FLORES Vital Signs Vital signs: Vital Signs - 8 hr 10/02/22 13:30 10/02/22 13:30 10/02/22 13:45 Pulse Rate 90 79 Respiratory Rate 22 20 Blood Pressure 110/63 Pulse Oximetry 100 100 Oxygen Delivery Method Room Air 10/02/22 14:00 10/02/22 14:00 10/02/22 14:15 Pulse Rate 75 81 Respiratory Rate 13 14 Blood Pressure 98/58 L Pulse Oximetry 100 100 Oxygen Delivery Method Room Air 10/02/22 15:17 10/02/22 15:17 Pulse Rate 92 H Respiratory Rate 16 Blood Pressure 106/56 L Pulse Oximetry 97 Oxygen Delivery Method Room Air Medical Decision Making Lab Data 10/02/22 10:57 10/02/22 10:57 Labs: Lab Results 10/02/22 10/02/22 10/02/22 Range/Units 10:57 10:57 10:57 WBC 11.2 H D (4.5-11.0) X10^3/uL RBC 4.17 (4.0-5.2) X10^6/uL Hgb 12.6 (12.0-16.0) g/dL Hct 37.2 (36-46) % MCV 89.3 (80-100) fL MCH 30.2 (26-34) PG MCHC 33.8 (30-36) % RDW 12.8 (11.6-14.8) % Plt Count 386 (150-400) X10^3/uL Neut % (Auto) 58.2 (50-75) % Lymph % (Auto) 29.9 (25-40) % [place] % (Auto) 6.8 (3-14) % Eos % (Auto) 4.5 H (2-4) % Baso % (Auto) 0.6 (0-2) % Neut # (Auto) 6500 (0754-0245) /uL Lymph # (Auto) 3300 (8360-5444) /uL [place] # (Auto) 800 (0-900) /uL Eos # (Auto) 500 H (0-450) /uL Baso # (Auto) 100 (0-100) /uL PT 16.0 H (10.1-12.7) SECONDS INR 1.4 H (0.9-1.3) APTT 31 (26-36) SECONDS Sodium 138 (137-145) mmol/L Potassium 3.3 L (3.4-5.1) mmol/L Chloride 102 (98-107) mmol/L Carbon Dioxide 26 (22-32) mmol/L BUN 14 (7-17) mg/dL Creatinine 0.74 (0.52-1.04) mg/dL Estimated GFR > 60 (>60) mL/min BUN/Creatinine Ratio 18.9 (6-22) Glucose 118 H (70-100) mg/dL Calcium 9.0 (8.4-10.2) mg/dL Magnesium 2.0 (1.6-2.3) mg/dL Total Bilirubin 0.2 (0.2-1.3) mg/dL AST 21 (14-36) IU/L ALT 13 (<35) IU/L Alkaline Phosphatase 70 (38-126) U/L Total Creatine Kinase 60 (30-135) U/L CK-MB (CK-2) TNP CK-MB (CK-2) Rel Index TNP Troponin I < 0.012 (0.01-0.034) ng/mL Total Protein 7.5 (6.3-8.2) g/dL Albumin 4.3 (3.5-5.0) g/dL Globulin 3.2 (1.7-4.1) g/dL Albumin/Globulin Ratio 1.3 (1.0-2.8) Lipase 191 (23-300) U/L CA 125 Antigen (0-35) U/mL 10/02/22 Range/Units 10:57 WBC (4.5-11.0) X10^3/uL RBC (4.0-5.2) X10^6/uL Hgb (12.0-16.0) g/dL Hct (36-46) % MCV (80-100) fL MCH (26-34) PG MCHC (30-36) % RDW (11.6-14.8) % Plt Count (150-400) X10^3/uL Neut % (Auto) (50-75) % Lymph % (Auto) (25-40) % [place] % (Auto) (3-14) % Eos % (Auto) (2-4) % Baso % (Auto) (0-2) % Neut # (Auto) (4855-3117) /uL Lymph # (Auto) (2039-2281) /uL [place] # (Auto) (0-900) /uL Eos # (Auto) (0-450) /uL Baso # (Auto) (0-100) /uL PT (10.1-12.7) SECONDS INR (0.9-1.3) APTT (26-36) SECONDS Sodium (137-145) mmol/L Potassium (3.4-5.1) mmol/L Chloride (98-107) mmol/L Carbon Dioxide (22-32) mmol/L BUN (7-17) mg/dL Creatinine (0.52-1.04) mg/dL Estimated GFR (>60) mL/min BUN/Creatinine Ratio (6-22) Glucose (70-100) mg/dL Calcium (8.4-10.2) mg/dL Magnesium (1.6-2.3) mg/dL Total Bilirubin (0.2-1.3) mg/dL AST (14-36) IU/L ALT (<35) IU/L Alkaline Phosphatase (38-126) U/L Total Creatine Kinase (30-135) U/L CK-MB (CK-2) CK-MB (CK-2) Rel Index Troponin I (0.01-0.034) ng/mL Total Protein (6.3-8.2) g/dL Albumin (3.5-5.0) g/dL Globulin (1.7-4.1) g/dL Albumin/Globulin Ratio (1.0-2.8) Lipase (23-300) U/L CA 125 Antigen 9.7 (0-35) U/mL [facility] Narrative Medical decision making narrative: 42-year-old female presenting with syncopal episode the setting of getting blood drawn earlier in the day. On presentation, vital signs notable for low-normal blood pressure, otherwise reassuring. Physical exam notable for alert interactive 42-year-old female who is in no acute distress, reassuring cardiopulmonary exam, benign abdomen. Initial concern for syncopal episode in the setting of pulmonary embolism, significant cardiac arrhythmia, metabolic derangement, infectious etiology, dehydration, vasovagal syncope, medication effect. Broad screening labs were obtained, patient had EKG performed without clear evidence of significant cardiac arrhythmia. CT imaging without evidence of pulmonary embolism, however, patient does have multiple possible bony lesions noted as above. Given concern for multiple bony lesions and fluid collection, MR imaging of the thoracic spine ordered to further evaluate for significant mass lesion/metastatic process. Discussed findings with patient and family at bedside. On repeat evaluation, patient is able to ambulate without difficulty in the emergency department. Vital signs remain stable on multiple rechecks. MR thoracic spine with and without contrast obtained and showing benign lesions as above. Discussed findings with patient and family at bedside. Discussed unclear etiology to explain the patient's episode of syncope, given blood draw, suspect vasovagal episode. Discussed plan for close outpatient follow up primary care physician, discussion cardiac event monitor. Return precautions discussed. Patient was subsequently discharged in stable condition. Discharge Plan Departure Patient Disposition: Home Clinical Impression: Syncope, Abnormal chest CT Instructions: DI for Syncope in Adults (Fainting) Activity Restrictions/Additional Instructions: Please follow up in the outpatient setting with your primary care provider for repeat evaluation. Please return to the emergency department with new or recurrent symptoms. Prescriptions: No Action cholecalciferol (vitamin D3) 25 mcg (1,000 unit) capsule 25 mcg PO DAILY Eliquis 5 mg tablet 5 mg PO BID Qty: 180 0RF fluoxetine 20 mg capsule 20 mg PO DAILY Referrals: Rashaun Mendez DO [Primary Care Provider] - Stand Alone Forms: Patient Portal/API
== END 2022-10-02 15:59 | disposition home or self-care (01) ==
PROVIDERS: Emergency Provider Emergency Medicine; PCP Family Medicine
DX: R55 Syncope and collapse (principal); R93.89 Abnormal findings on diagnostic imaging of other specified body structures; R79.89 Other specified abnormal findings of blood chemistry; Z79.01 Long term (current) use of anticoagulants; I82.402 Acute embolism and thrombosis of unspecified deep veins of left lower extremity
CPT/HCPCS: 36415; 71275; 72157; 80053; 81240; 81241; 82550; 83690; 83735; 84484; 85025; 85300; 85303; 85306; 85379; 85598; 85610; 85613; 85730; 86038; 86304; 93005; 93010; 99284; 99285; Q9967

== ENCOUNTER → 2022-10-16 15:23 | Outpatient (CLI) | payer OTHER, SELFPAY ==
--- NOTE | 2022-10-16 | DI.MG.S_ITS ---
BILATERAL DIGITAL SCREENING MAMMOGRAM 3D/2D WITH CAD: 10/16/2022 CLINICAL: Baseline exam. Routine screening. No prior exams were available for comparison. Both breasts are heterogeneously dense, which may obscure small masses (category c / 51-75% glandular tissue). Current study was also evaluated with a Computer Aided Detection (CAD) system. No significant masses, calcifications, or other findings are seen in either breast. IMPRESSION: NEGATIVE There is no mammographic evidence of malignancy. A 1 year screening mammogram is recommended. Based on the Tyrer Cuzick model (a risk assessment model) the patient's lifetime risk is 11.4% and her 10 year risk is 1.5%. According to the ACR, ACS, and NCCN guidelines, an annual breast MRI exam along with mammogram is recommended if the patient's lifetime risk is 20% or greater. This exam was interpreted at Station ID: [id number]. NOTE: For mammograms, a report in lay terms will be sent to the patient. Approximately 15% of breast malignancies will not be visualized mammographically. In the management of a palpable breast mass, a negative mammogram must not discourage biopsy of a clinically suspicious lesion. Electronically Signed By: Nile Sykes M.D., jr/celeste:10/17/2022 09:14:57 letter sent: Normal Exam ACR BI-RADS Category 1: Negative 3341F
== END ==
PROVIDERS: PCP Family Medicine; Referring Provider Family Medicine; Visit Provider Family Medicine
DX: Z12.31 Encounter for screening mammogram for malignant neoplasm of breast (principal)
CPT/HCPCS: 77063; 77067

== ENCOUNTER → 2022-11-08 07:28 | Outpatient (CLI) | payer OTHER, SELFPAY ==
--- NOTE | 2022-11-08 07:29 | DI.MRI.S_ITS ---
PROCEDURE: MR KNEE LT WO/W CON INDICATIONS: left knee pain and swelling TECHNIQUE: Noncontrast sagittal PD fast spin echo and T2 fast spin echo with fat saturation, sagittal 3-D FLASH with fat saturation; coronal T1 spin echo and PD fast spin echo with fat saturation, and axial T1 spin echo and PD fast spin echo with fat saturation through the knee. Post-contrast axial, coronal, and sagittal T1 spin echo with fat saturation through the knee. COMPARISON: [facility], MR, MR THORACIC SPINE WO/W CON, 10/02/2022, 14:30. [facility], CR, XR KNEE LT 3V, 08/21/2022, 8:46. FINDINGS: Image quality: Excellent. Menisci: There is complex tear involving the peripheral aspect of the posterior horn of the medial meniscus extending to the inferior articular surface (series 14 image 10). The lateral meniscus demonstrates normal morphology and internal signal. The meniscal root ligaments appear intact. Cruciate ligaments: The anterior and posterior cruciate ligaments appear intact. Medial structures: The medial collateral ligament appears intact. The semimembranosus tendon insertions, and meniscocapsular junction appear intact. Visualized portions of the pes anserinus tendons appear normal. No abnormal bursal fluid. Lateral structures: The lateral collateral ligament, long and short heads of the biceps femoris tendon appear intact. The popliteus tendon appears normal. Iliotibial band appears normal. Anterior structures: The quadriceps and patellar tendons appear intact. Patellar alignment is normal. No femoral trochlear dysplasia or ventral trochlear prominence. No edema in the infrapatellar fat pad. Bones and cartilage: No suspicious osseous enhancement. No bone marrow contusions or fractures. Mild tricompartmental cartilage thinning and and fibrillation. Joint space: There is moderate knee joint effusion. There is synovial thickening and enhancement consistent with synovitis. No James's cyst. Normal appearing synovial plicae are incidentally noted. No suspicious soft tissue enhancement. IMPRESSION: 1. Medial meniscal tear involving the posterior horn. 2. Synovial thickening consistent with synovitis. There is moderate knee joint effusion. 3. Mild tricompartmental cartilage thinning and fibrillation consistent with early arthritic change. Dictated by: Marie James M.D. on 11/08/2022 at 8:30 Approved by: Marie James M.D. on 11/08/2022 at 9:03
== END ==
PROVIDERS: PCP Family Medicine; Referring Provider Internal Medicine Medical Oncology; Visit Provider Internal Medicine Medical Oncology
DX: S83.232A Complex tear of medial meniscus, current injury, left knee, initial encounter (principal); M25.462 Effusion, left knee; M25.562 Pain in left knee
CPT/HCPCS: 73723

== ENCOUNTER → 2023-01-01 14:58 | Outpatient (CLI) | payer OTHER, SELFPAY ==
--- NOTE | 2023-01-01 14:59 | DI.CT.S_ITS ---
PROCEDURE: CT CHEST W CON INDICATIONS: Further evaluate loculated mass left lung TECHNIQUE: After the administration of intravenous contrast, 5 mm thick sections acquired from the pulmonary apices to the posterior costophrenic angles. 1 mm axial lung, 5 mm thick coronal and sagittal reformats and 7 mm axial MIP were acquired. For radiation dose reduction, the following was used: automated exposure control, adjustment of mA and/or kV according to patient size. COMPARISON: CT 10/02/2022. FINDINGS: Image quality: Excellent. Lungs and pleura: Accounting for differences in measuring technique, there has been no significant interval change in size of the 1.7 x 1.1 centimeter pleural-based lesion in the left major fissure (series 3, image 183). Mediastinum: Heart size is normal. No pericardial effusion. No mediastinal or hilar adenopathy by size criteria. Thoracic aorta and central pulmonary arteries are normal in size. Esophagus is normal in caliber. No hiatal hernia. Bones and chest wall: No suspicious bony lesions. No vertebral body compression fractures. No axillary or supraclavicular adenopathy by size criteria. Thyroid gland is unremarkable . Abdomen: Subcentimeter hypoattenuating splenic lesion, too small to characterize by CT IMPRESSION: No significant interval change in the pleural base lesion within the left major fissure, probably representing a large intrapulmonary lymph node or other benign lesion. Recommend six-month follow-up to ensure stability. Dictated by: Hua Adler M.D. on 01/01/2023 at 17:12 Approved by: Hua Adler M.D. on 01/01/2023 at 17:14
== END ==
PROVIDERS: PCP Family Medicine; Referring Provider Family Medicine; Visit Provider Family Medicine
DX: J98.4 Other disorders of lung (principal)
CPT/HCPCS: 71260; Q9967

== ENCOUNTER → 2023-01-13 16:25 | Outpatient (CLI) | payer OTHER, SELFPAY ==
[2023-01-13 17:44] LABS: Add Manual Diff / Slide Review NO; Basophils Absolute Auto 0 /uL (0-100); Basophils Percent Auto 0.3 % (0-2); Eosinophils Absolute Auto 200 /uL (0-450); Eosinophils Percent Auto 3.5 % (2-4); Hematocrit 34.1 % (36-46); Hemoglobin 11.8 g/dL (12.0-16.0); Lymphocytes Absolute Auto 1800 /uL (1100-4500); Lymphocytes Percent Auto 26.3 % (25-40); Mean Corpuscular HGB Conc 34.6 % (30-36); Mean Corpuscular Hemoglobin 30.1 PG (26-34); Monocytes Absolute Auto 600 /uL (0-900); Monocytes Percent Auto 8.4 % (3-14); Neutrophils Absolute Auto 4100 /uL (1500-7000); Neutrophils Percent Auto 61.5 % (50-75); Platelet Count 323 X10^3/uL (150-400); Red Blood Cell Count 3.92 X10^6/uL (4.0-5.2); Red Cell Distribution Width 13.6 % (11.6-14.8); White Blood Cell Count 6.7 X10^3/uL (4.5-11.0)
[2023-01-13 18:03] LABS: D Dimer 1223 ng/ml (<500)
[2023-01-13 18:56] LABS: HEMOLYSIS < 15 (0-50); Iron 181 ug/dL (37-170)
[2023-01-13 19:00] LABS: Alanine Aminotransferase 15 IU/L (<35); Albumin 4.3 g/dL (3.5-5.0); Albumin Globulin Ratio 1.4 (1.0-2.8); Alkaline Phosphatase 68 U/L (38-126); Aspartate Aminotransferase 24 IU/L (14-36); BUN Creatinine Ratio 23.5 (6-22); Bilirubin Total 0.2 mg/dL (0.2-1.3); Blood Urea Nitrogen 16 mg/dL (7-17); C-Reactive Protein Quant < 0.5 mg/dL (<1.0); Calcium 9.3 mg/dL (8.4-10.2); Carbon Dioxide 28 mmol/L (22-32); Chloride 102 mmol/L (98-107); Estimated Glomerular Filt Rate > 60 mL/min (>60); Globulin 3.1 g/dL (1.7-4.1); Glucose 101 mg/dL (70-100); HEMOLYSIS < 15 (0-50); Potassium 3.8 mmol/L (3.4-5.1); Sodium 137 mmol/L (137-145); Total Protein 7.4 g/dL (6.3-8.2)
[2023-01-13 19:07] LABS: Percent Iron Saturation 49 % (15-50); Total Iron Binding Capacity 372 ug/dL (265-497); Transferrin 283 mg/dL (206-381)
[2023-01-13 19:09] LABS: Prolactin 17.3 ng/mL (3.0-18.6)
[2023-01-13 19:10] LABS: Free T4, Direct Thyroxine 0.94 ng/dL (0.78-2.19)
[2023-01-13 19:24] LABS: Thyroid Stimulating Hormone 0.626 uIU/mL (0.47-4.68)
[2023-01-13 19:42] LABS: Erythrocyte Sedimentation Rate 16 MM/HR (0-20); Vitamin B12 475 pg/mL (239-931)
== END ==
PROVIDERS: Internal Medicine Medical Oncology; PCP Family Medicine; Referring Provider Physician Assistant Medical; Visit Provider Physician Assistant Medical
DX: D64.9 Anemia, unspecified (principal); E87.8 Other disorders of electrolyte and fluid balance, not elsewhere classified
CPT/HCPCS: 36415; 80053; 82607; 83540; 83550; 84146; 84439; 84443; 85025; 85379; 85651; 86140

== ENCOUNTER → 2023-06-18 15:45 | Outpatient (CLI) | payer OTHER, SELFPAY ==
--- NOTE | 2023-06-18 15:46 | DI.MRI.S_ITS ---
PROCEDURE: MR KNEE LT WO CON INDICATIONS: Continued left knee pain TECHNIQUE: Noncontrast sagittal PD fast spin echo and T2 fast spin echo with fat saturation, sagittal 3-D FLASH with fat saturation; coronal T1 spin echo and PD fast spin echo with fat saturation, and axial PD fast spin echo with fat saturation through the knee. COMPARISON: None. FINDINGS: Image quality: Diagnostic. Patient motion is noted. Menisci: Complex oblique tear involving posterior horn of medial meniscus is seen extending to both superior and inferior articulating surfaces. Peripheral displacement of medial meniscus bowing medial collateral ligament is also seen. There is also suggestion of complex tear involving body of lateral meniscus extending to both superior and inferior articulating surfaces. Peripheral displacement of lateral meniscus is also noted. The meniscal root ligaments appear intact. Cruciate ligaments: The anterior cruciate ligament is mildly thickened with intrasubstance T2 hyperintense signal. The posterior cruciate ligament is intact. Medial structures: The medial collateral ligament appears thickened with intrasubstance T2 hyperintense signal near its femoral insertion. The posterior oblique ligament, semimembranosus tendon insertions, oblique popliteal ligament, and meniscocapsular junction appear intact. Visualized portions of the pes anserinus tendons appear normal. No abnormal bursal fluid. Lateral structures: The lateral collateral ligament, long and short heads of the biceps femoris tendon appear intact. Tendinosis is noted involving popliteus tendon. The Iliotibial band appears normal. Anterior structures: The quadriceps and patellar tendons appear intact. Patellar alignment is normal. No femoral trochlear dysplasia or ventral trochlear prominence. No edema in the infrapatellar fat pad. 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 Marrow edema is noted within lateral tibial plateau and lateral periphery of lateral femoral condyle without discrete fracture line. Joint space: There is moderate knee joint fluid. No James's cyst. Normal appearing synovial plicae are incidentally noted. IMPRESSION: 1. Complex tear involving posterior horn of medial meniscus extending to both superior and inferior articulating surfaces. Complex tear involving body of lateral meniscus extending to both superior and inferior articulating surfaces. 2. Low-grade ACL sprain. No ACL rupture. The PCL is intact. 3. Low to moderate grade MCL sprain/partial-thickness tear. 4. Proximal popliteus tendinosis. 5. [id number] tricompartmental osteoarthritis and chondromalacia more notably in lateral femoral tibial compartment as above. No fracture or dislocation. Moderate joint effusion, no loose bodies. Dictated by: Sudarshan Corbett M.D. on 06/19/2023 at 9:46 Approved by: Sudarshan Corbett M.D. on 06/19/2023 at 10:01
== END ==
PROVIDERS: PCP Family Medicine; Referring Provider Family Medicine; Visit Provider Family Medicine
DX: S83.232A Complex tear of medial meniscus, current injury, left knee, initial encounter (principal); S83.272A Complex tear of lateral meniscus, current injury, left knee, initial encounter; S83.512A Sprain of anterior cruciate ligament of left knee, initial encounter; S83.412A Sprain of medial collateral ligament of left knee, initial encounter; M17.12 Unilateral primary osteoarthritis, left knee; M94.262 Chondromalacia, left knee; M25.462 Effusion, left knee; M25.562 Pain in left knee
CPT/HCPCS: 73721

== ENCOUNTER → 2023-09-23 06:50 | Outpatient (CLI) | payer OTHER, SELFPAY ==
--- NOTE | 2023-09-23 06:52 | DI.US.S_ITS ---
PROCEDURE: US PELVIC COMPLETE INDICATIONS: DUB TECHNIQUE: Real-time scanning was performed of the pelvic organs, with image documentation. Additional endovaginal scanning was necessary due to incomplete visualization of the adnexal and endometrial structures by transabdominal scanning. COMPARISON: [facility], US, US PELVIC COMPLETE, 06/06/2021, 7:30. FINDINGS: Uterus: Uterus is anteverted and normal in size at 10.1 x 4.5 x 6.9 cm. The myometrium is homogeneous. The endometrium measures 10 mm combined thickness. Ovaries: The right ovary measures 2.1 x 1.1 x 1.0 cm, with a calculated ovarian volume of 1.2 cc. The left ovary measures 2.2 x 4.6 x 2.4 cm, with a calculated ovarian volume of 12.9 cc. Simple cyst within the left ovary measuring 2.7 cm. The ovaries have a normal sonographic appearance. Less than 12 follicles can be seen in each ovary. No adnexal masses are seen. Other: No pathologic free abdominal or pelvic fluid. IMPRESSION: The endometrium is normal in thickness. Left ovarian simple cyst measuring 2.7 cm. We strive to produce accurate, complete, and clear reports of imaging services. To assist us in improving patient care, this report was composed using standard report templates and voice recognition software. Therefore, it may contain abnormal punctuation, insertions and/or omissions. Occasional wrong-word or sound-alike substitutions may occur. Though we review the report and make efforts to correct it, we do recommend that the report be read carefully in proper context to recognize any text inaccuracies. Dictated by: Deion Pacheco M.D. on 09/23/2023 at 9:28 Approved by: Deion Pacheco M.D. on 09/23/2023 at 9:31
== END ==
LOC: US 06:51
PROVIDERS: PCP Family Medicine; Referring Provider Student in an Organized Health Care Education/Training Program; Visit Provider Student in an Organized Health Care Education/Training Program
DX: N92.6 Irregular menstruation, unspecified (principal); N83.292 Other ovarian cyst, left side
CPT/HCPCS: 76830; 76856

== ENCOUNTER → 2024-01-20 16:08 | Outpatient (CLI) | payer OTHER, SELFPAY ==
--- NOTE | 2024-01-20 | DI.MG.S_ITS ---
BILATERAL DIGITAL SCREENING MAMMOGRAM 3D/2D WITH CAD: 01/20/2024 CLINICAL: Routine screening. Family history of breast cancer. Comparison is made to exam dated: 10/16/2022 mammogram - [facility]. Both breasts are heterogeneously dense, which may obscure small masses (category c / 51-75% glandular tissue). Current study was also evaluated with a Computer Aided Detection (CAD) system. No significant masses, calcifications, or other findings are seen in either breast. There has been no significant interval change. IMPRESSION: NEGATIVE There is no mammographic evidence of malignancy. A 1 year screening mammogram is recommended. Based on the Tyrer Cuzick model (a risk assessment model) the patient's lifetime risk is 11.4% and her 10 year risk is 1.7%. According to the ACR, ACS, and NCCN guidelines, an annual breast MRI exam along with mammogram is recommended if the patient's lifetime risk is 20% or greater. This exam was interpreted at Station ID: [id number]. NOTE: For mammograms, a report in lay terms will be sent to the patient. Approximately 15% of breast malignancies will not be visualized mammographically. In the management of a palpable breast mass, a negative mammogram must not discourage biopsy of a clinically suspicious lesion. Electronically Signed By: Mechelle faustin/celeste:01/21/2024 16:08:35 letter sent: Normal Exam ACR BI-RADS Category 1: Negative 3341F
== END ==
PROVIDERS: PCP Family Medicine; Referring Provider Family Medicine; Visit Provider Family Medicine
DX: Z12.31 Encounter for screening mammogram for malignant neoplasm of breast (principal); Z80.3 Family history of malignant neoplasm of breast; R92.333 Mammographic heterogeneous density, bilateral breasts
CPT/HCPCS: 77063; 77067

== ENCOUNTER → 2024-02-10 14:08 | Outpatient (CLI) | payer OTHER, SELFPAY ==
--- NOTE | 2024-02-10 15:00 | DI.CT.S_ITS ---
PROCEDURE: CT CHEST WO CON INDICATIONS: Follow-up lung abnormality found earlier TECHNIQUE: Noncontrast 5 mm thick sections acquired from the pulmonary apices to the posterior costophrenic angles. 1 mm lung window, 5 mm thick coronal and sagittal and 7 mm axial MIP reformats were then acquired. For radiation dose reduction, the following was used: automated exposure control, adjustment of mA and/or kV according to patient size. COMPARISON: [facility], CT, CT CHEST W CON, 01/01/2023, 15:30. [facility], CT, CT ANGIO CHEST PE PROTOCOL, 10/02/2022, 11:30. FINDINGS: Image quality: Diagnostic. Lower Neck: No enlarged lymph nodes. Thyroid: No thyroid nodules which require sonographic follow up, per consensus guidelines. Axillae: No enlarged lymph nodes. Chest Wall: Unremarkable. Bones: Unremarkable. Lungs and Pleura: Focal thickening can be seen along the left oblique fissure laterally and inferiorly, as on series 3, image 167, measuring 2 x 1.6 cm in greatest axial dimension. When compared to the prior CT dated 01/01/2023, this has grown since that time. No additional focal pulmonary abnormality is seen. No focal infiltrates are seen. No pneumothorax or pleural effusions are seen. Heart: Heart size is normal. No pericardial effusion. Thoracic Vessels: The aorta and pulmonary arteries demonstrate normal size. Mediastinum and Marichuy: No enlarged lymph nodes. Esophagus: No wall thickening. No hiatal hernia. Upper Abdomen: Visualized upper abdomen solid organs and bowel loops appear normal. IMPRESSION: There is an increased focus of pleural thickening seen along the lateral aspect of the left oblique fissure. Please now consider a follow-up PET-CT for further evaluation. Dictated by: Zhen Prince M.D. on 02/10/2024 at 16:26 Approved by: Zhen Prince M.D. on 02/10/2024 at 16:29
== END ==
PROVIDERS: PCP Family Medicine; Referring Provider Family Medicine; Visit Provider Family Medicine
DX: E87.6 Hypokalemia (principal); J98.4 Other disorders of lung; D64.9 Anemia, unspecified; I82.4Z2 Acute embolism and thrombosis of unspecified deep veins of left distal lower extremity
CPT/HCPCS: 71250

== ENCOUNTER 2024-02-23 09:57 | Day surgery (SDC) | payer OTHER, SELFPAY ==
[2024-02-19 15:03] VITALS: BMI 24.0
[2024-02-23] VITALS (7 sets, daily range): BP systolic 89–107; BP diastolic 50–77; PULSE 57–76; RESP 10–16; TEMP 36.3–37.3; O2SAT 95–99; BMI 24.0
--- NOTE | 2024-02-23 | PATH_ITS ---
[facility] Accession Number: [id number] No. of containers..01 Tissue . 01 Material submitted: . endometrium - ENDOMETRIAL CURETTINGS . 01 Diagnosis: ENDOMETRIAL CURETTINGS: Portions of weakly proliferative endometrium with patchy regions of stromal breakdown; negative for endometrioid intraepithelal neoplasia or malignancy. Some endometrial fragments demonstrate prominent vessels, suggestive of polyp, if clinical and imaging studies are concordant. LYK 02/25/2024 1214 Local . 01 Electronically signed: . Cecilia Chavez MD, Pathologist NPI- [id number] . 01 Gross description: . Received in formalin with two patient identifiers and endometrial curettings, are multiple bush soft tissue fragments admixed with mucohemorrhagic material aggregating to 3.2 x 3.1 x 0.4 cm. Filtered and submitted in A1. ([id number]) /MRV 02/24/2024 1526 Local . 01 Pathologist provided ICD-10: N85.8 . 01 CPT . 579340 Specimen Comment: A courtesy copy of this report has been sent to [facility] Pathology Performed at: [address] [address], [place], [place] [id number] MD Curtis Figueroa MD Phone: [phone]
[2024-02-23] MEDS: LACTATED RINGERS 1,000 ML 42 ML IV (10:49)
--- NOTE | 2024-02-23 11:27 | PM.PREOP ---
Pre-operative Note Interval Note History & Physical reviewed/Exam performed by Physician: Yes Changes to H&P: No H&P completed within 30 days and has changed as indicated here:: see H&P from 02/17/24
--- NOTE | 2024-02-23 11:27 | SUR.OPER ---
Lithotomy on padded OR bed, head on pillow, arms secured on padded arm boards at <90 degrees abduction. Legs secured in padded yellow fins stirrups.
[2024-02-23] MEDS: SILVER NITRATE STICK 2 EACH TOP (12:11)
--- NOTE | 2024-02-23 12:18 | PM.OP.1 ---
Operative Date/Time/Diagnoses Date of procedure: 02/23/24 Time of procedure: 11:45 Pre-op diagnosis: Abnormal uterine bleeding Post-op diagnosis: same Procedure & Clinicians Procedure: Diagnostic hysteroscopy Dilation and curettage Novasure endometrial ablation Same procedure as scheduled: Yes Indications: 44yo F with AUB desiring surgical management. After counseling regarding the various options available for treatment, pt desired to proceed with endometrial ablation. Surgeon: Yesenia Pavon Click Yes if Unassisted: Yes Anesthesia Type: General Operative Notes Findings: Normal appearing endometrial cavity. Bilateral tubal ostia visualized. Closure Type: not applicable Specimen(s): other (endometrial curettings) Estimated Blood Loss (mL): 5 Blood products transfused: none Procedure in detail: The risks, benefits, indications and alternatives of the procedure were reviewed with the patient and informed consent was obtained. The pt was taken to the operating room where anesthesia was obtained without difficulty. The pt was then placed in the low lithotomy position using gel-padded Marco stirrups. Pt was then prepped and draped in the sterile fashion. A sterile speculum was placed in the patient?s vagina and the cervix was visualized. The single-tooth tenaculum was then used to grasp the anterior lip of the cervix. The hysteroscope was then advanced through the endocervical canal under direct visualization, with fluid running to gravity. After distension of the uterus with warm saline, a systematic examination of the intrauterine cavity was performed. The endometrial cavity appeared normal and the tubal ostia were visualized bilaterally. The hysteroscope was then removed under direct visualization. A sharp curettage was then performed until a gritty texture was noted. Tissue obtained was sent to pathology for review. The uterus was then sounded to 9cm, with a cervical length of 4cm. The Novasure device was then placed into the uterine cavity and deployed. The usual maneuvers were performed per the supervisor laundry?s guidelines and a cavity width of 4.5cm was obtained. The cavity integrity was assessed and found to be adequate. The Novasure device was then activated and the cavity was ablated for 58 seconds at a power of 124 quinones. The Novasure device was then carefully removed from the endometrial cavity. The single tooth tenaculum was removed from the anterior lip of the cervix. The tenaculum site was noted to be hemostatic with direct pressure and silver nitrate. All instruments were then removed from the vagina. At the completion of the case the sponge and needle counts were correct x 2.? The patient tolerated the procedure well and was taken to the PACU in stable condition. Complications: none Post-operative Condition: stable Disposition: PACU Plan for aftercare: Discharge to home once patient is meeting all discharge criteria.
== END 2024-02-23 13:05 | disposition home or self-care (01) ==
PROVIDERS: PCP Family Medicine; Referring Provider Student in an Organized Health Care Education/Training Program; Visit Provider Student in an Organized Health Care Education/Training Program
PROC: 0U5B8ZZ Destruction of Endometrium, Via Natural or Artificial Opening Endoscopic (ICD-10-PCS; CPT 58563; principal; 2024-02-23 11:15)
DX: N93.9 Abnormal uterine and vaginal bleeding, unspecified (principal)
CPT/HCPCS: 58563; 81025; J1100; J1885; J2405; J2704

== ENCOUNTER → 2024-11-06 07:34 | Outpatient (CLI) | payer OTHER, SELFPAY ==
--- NOTE | 2024-11-06 07:35 | DI.MRI.S_ITS ---
PROCEDURE: MR LUMBAR SPINE WO CON INDICATIONS: Progressive lower back pain with lower extremity radiculopat TECHNIQUE: Noncontrast sagittal T1 spin echo and T2 fast echo, sagittal STIR, and T2 fast spin echo through the lumbar spine. In cases with scoliosis, additional coronal T2 fast spin echo may be performed. COMPARISON: [place], [place], [place] PET CT FUSION WHOLE BODY, 03/24/2024, 16:23. FINDINGS: Image quality: Excellent. Alignment and Curvature: There is trace retrolisthesis of L3 on L4. Bone Marrow: Marrow is of normal overall signal. No acute vertebral body compression fractures. Spinal Cord: Conus medullaris terminates at the L1 level. Visualized cord demonstrates normal signal and size. Synovial cyst is present at S2. Paraspinous Soft Tissues: No paravertebral masses. Discs: Mild desiccation at L3-4, L4-5. T12-L1: No disc bulge, spinal stenosis or foraminal narrowing. L1-L2: No disc bulge, spinal stenosis or foraminal narrowing. L2-L3: No disc bulge, spinal stenosis or foraminal narrowing. L3-L4: Minimal disc bulge with small posterior central protrusion. Indentation of the anterior thecal sac. Minimal left foraminal narrowing. Minimal epidural lipomatosis. L4-L5: Mild disc bulge without spinal stenosis. No foraminal narrowing. L5-S1: Minimal disc bulge without spinal stenosis. No foraminal narrowing. IMPRESSION: Minimal to mild scattered early degenerative change. Dictated by: Alyson Pardo M.D. on 11/08/2024 at 15:24 Approved by: Alyson Pardo M.D. on 11/08/2024 at 15:28
== END ==
PROVIDERS: PCP Family Medicine; Referring Provider Family Medicine; Visit Provider Family Medicine
DX: M54.50 Low back pain, unspecified (principal); M51.369 Other intervertebral disc degeneration, lumbar region without mention of lumbar back pain or lower extremity pain; M48.061 Spinal stenosis, lumbar region without neurogenic claudication
CPT/HCPCS: 72148

== ENCOUNTER → 2025-03-05 07:30 | Outpatient (CLI) | payer OTHER, SELFPAY ==
--- NOTE | 2025-03-05 07:32 | DI.MRI.S_ITS ---
PROCEDURE: MR HEAD/BRAIN WO/W CON INDICATIONS: DEFUSE WEAKNESS MYLAGIA TECHNIQUE: Noncontrast axial T1 spin echo, axial T2 fast spin echo, sagittal and axial FLAIR, coronal T2 fast spin echo, axial gradient echo, axial diffusion and ADC through the brain. After the administration of contrast, axial and coronal and sagittal 3D VIBE or T1 spin echo with fat saturation through the brain. COMPARISON: None. FINDINGS: Image quality: Excellent. CSF Spaces: Basal cisterns are patent. No extra-axial fluid collections. Ventricles are normal in size and shape. Brain: No midline shift. No intracranial bleeds or masses. No abnormal intracranial enhancement. The brainstem appears normal. There is a 4 mm focus of FLAIR signal elevation within the right frontal periventricular white matter which is nonspecific. Diffusion-weighted images demonstrate no acute infarct. No chronic ischemic insults. Normal intravascular flow voids are present. Skull and face: Calvarial marrow is normal in signal. Orbits appear normal. Sinuses: Small bilateral maxillary sinus retention cysts. Sinuses and mastoids otherwise appear clear. IMPRESSION: 1. No acute process. No recent infarct. 2. Small nonspecific white matter signal abnormality as described above. Differential considerations include an area of remote (possibly in utero) infarct/insult, versus demyelination versus vasculitis versus migraine. Dictated by: Emilia Loja M.D. on 03/07/2025 at 11:29 Approved by: Emilia Loja M.D. on 03/07/2025 at 11:31
== END ==
PROVIDERS: PCP Family Medicine; Referring Provider Family Medicine; Visit Provider Physical Medicine & Rehabilitation
DX: G35 Multiple sclerosis (principal); M60.9 Myositis, unspecified; R53.1 Weakness; J34.1 Cyst and mucocele of nose and nasal sinus
CPT/HCPCS: 70553; A9579

== ENCOUNTER → 2025-03-29 14:16 | Outpatient (CLI) | payer OTHER, SELFPAY | PROVIDERS: PCP Family Medicine; Referring Provider Family Medicine; Visit Provider Family Medicine | DX: G35 Multiple sclerosis (principal) | CPT/HCPCS: 36415; 85651 ==

== ENCOUNTER → 2025-06-23 12:45 | Outpatient (CLI) | payer OTHER, SELFPAY ==
--- NOTE | 2025-06-23 12:46 | DI.US.S_ITS ---
PROCEDURE: US RENAL COMPLETE INDICATIONS: Chronic kidney disease TECHNIQUE: Real-time scanning was performed of the kidneys and bladder, with image documentation. COMPARISON: [facility], MR, MR LUMBAR SPINE WO CON, 11/06/2024, 7:42. FINDINGS: Kidneys: Kidneys are normal in size. Right kidney measures 11.2 cm long; left kidney measures 12.4 cm long. Right renal cortical thickness is 1.5 cm; left renal cortical thickness is 1.8 cm. Renal cortical echotexture is within normal limits. No hydronephrosis or nephrolithiasis. No suspicious solid mass lesions. Bladder: Pre-void bladder volume is estimated at 250 mL. Pre-void images demonstrate no intraluminal masses or stones. On pre-void images, both ureteral jets are noted with color Doppler interrogation. (Of note, ureteral jets may not be detectable in up to 25% of cases due to insufficient differences in specific gravity between ureteral and bladder urine). Miscellaneous: No free pelvic fluid. IMPRESSION: No hydronephrosis. Renal size is within normal limits. Dictated by: Houston Zuniga M.D. on 06/24/2025 at 13:03 Approved by: Houston Zuniga M.D. on 06/24/2025 at 13:10
== END ==
PROVIDERS: PCP Family Medicine; Referring Provider Family Medicine; Visit Provider Family Medicine
DX: N18.1 Chronic kidney disease, stage 1 (principal)
CPT/HCPCS: 76770

== ENCOUNTER → 2025-06-29 13:53 | Outpatient (CLI) | payer OTHER, SELFPAY ==
--- NOTE | 2025-06-29 13:55 | DI.CT.S_ITS ---
PROCEDURE: CT CHEST W CON
== END ==
PROVIDERS: PCP Family Medicine; Referring Provider Family Medicine; Visit Provider Family Medicine
DX: R91.8 Other nonspecific abnormal finding of lung field (principal); J91.8 Pleural effusion in other conditions classified elsewhere
CPT/HCPCS: 71260; Q9967

== ENCOUNTER → 2025-07-29 08:54 | Outpatient (CLI) | payer OTHER, SELFPAY ==
[2025-07-29 10:09] LABS: Add Manual Diff / Slide Review NO; Hematocrit 36.7 % (36-46); Hemoglobin 12.9 g/dL (12.0-16.0); Lymphocytes Absolute Auto 1400 /uL (1100-4500); Mean Corpuscular HGB Conc 35.1 % (30-36); Mean Corpuscular Hemoglobin 32.4 PG (26-34); Mean Corpuscular Volume 92.4 fL (80-100); Platelet Count 252 X10^3/uL (150-400)
[2025-07-29 10:56] LABS: Alanine Aminotransferase 14 IU/L (<35); Albumin 4.3 g/dL (3.5-5.0); Albumin Globulin Ratio 1.7 (1.0-2.8); Alkaline Phosphatase 62 U/L (38-126); Blood Urea Nitrogen 14 mg/dL (7-17); Calcium 9.3 mg/dL (8.4-10.2); Carbon Dioxide 25 mmol/L (22-32); Chloride 104 mmol/L (98-107); Estimated Glomerular Filt Rate > 60 mL/min (>60); Globulin 2.6 g/dL (1.7-4.1); Glucose 87 mg/dL (70-99); HEMOLYSIS < 15 (0-50); Potassium 4.3 mmol/L (3.4-5.1); Sodium 138 mmol/L (137-145); Total Protein 6.9 g/dL (6.3-8.2)
[2025-07-29 11:38] LABS: Appearance Urine UA CLEAR; Bilirubin Urine UA NEGATIVE (NEGATIVE); Color Urine UA YELLOW; Glucose Urine UA NEGATIVE (Negative); Ketones Urine UA NEGATIVE (NEGATIVE); Leukocyte Esterase Urine UA NEGATIVE (NEGATIVE); Nitrite Urine UA NEGATIVE (Negative); Occult Blood Urine UA TRACE-INTACT (Negative); Protein Urine UA NEGATIVE (Negative); Specific Gravity Urine UA 1.020 (1.000-1.035); Urobilinogen Urine UA 0.2 E.U./dL (0.2)
[2025-07-29 11:41] LABS: pH Urine UA 5.5 (4.5-8.0)
[2025-07-29 11:45] LABS: Culture Indicated Urine Cult Not Indicated
[2025-07-29 12:29] LABS: Protein (Total) Urine Random < 5 mg/dL (0-12); Protein Creatinine Ratio Urine 0.05 GRAM/24H
== END ==
PROVIDERS: PCP Family Medicine; Referring Provider Family Medicine; Visit Provider Family Medicine
DX: J90 Pleural effusion, not elsewhere classified (principal); N28.9 Disorder of kidney and ureter, unspecified; Z79.61 Long term (current) use of immunomodulator
CPT/HCPCS: 36415; 80053; 81001; 82570; 84156; 85025